=== PATIENT | male | born 1965 | race Asian ===

== ENCOUNTER → 2017-05-15 | Outpatient (CLI) | payer OTHER | END | disposition home or self-care (01) | LOC: CFH 10:42 | PROVIDERS: ATTEND Family Medicine | DX: M19.012 Primary osteoarthritis, left shoulder (principal); M25.511 Pain in right shoulder; M25.532 Pain in left wrist; M79.605 Pain in left leg; M79.604 Pain in right leg; G89.29 Other chronic pain ==

== ENCOUNTER 2017-10-19 13:59 | Inpatient (IN) | payer OTHER ==
[~2017-10-19] VITALS: Ht 175.3 cm; Wt 108.0 kg
[2017-10-19] MEDS ORDERED: ASPI-496 PO (14:12)
[2017-10-19] MEDS ORDERED: METF10002 PO (14:12)
[2017-10-19] MEDS ORDERED: AMLO5TAB2 PO (14:12)
[2017-10-19] MEDS ORDERED: LOSA100T6 PO (14:12)
[2017-10-19] MEDS ORDERED: NAPR-856 PO (14:12)
[2017-10-19] MEDS ORDERED: LOVA20TA2 PO (14:12)
[2017-10-19] MEDS ORDERED: CEPHALEXIN 500 MG CAPSULE PO ONE (15:00)
[2017-10-19] MEDS ORDERED: CEPHALEXIN 500 MG CAPSULE ONE (15:08)
[2017-10-19 16:09] LABS: BASOPHILS % (AUTO) 1 % (0-1); EOSINOPHILS # (AUTO) 0.31 x10^3/uL (0-0.4); EOSINOPHILS % (AUTO) 2 % (1-7); LYMPHOCYTES # (AUTO) 2.43 x10^3/uL (1-3.4); LYMPHOCYTES % (AUTO) 18 % (22-44); MD NO; MEAN CORPUSCULAR HEMOGLOBIN 29.8 pg (27.5-34.5); MEAN CORPUSCULAR VOLUME 87.4 fL (81-97); MEAN PLATELET VOLUME 8.4 fL (7.4-10.4); MONOCYTES # (AUTO) 0.92 x10^3/uL (0.2-0.8); MONOCYTES % (AUTO) 7 % (2-9); NEUTROPHILS # (AUTO) 10.09 x10^3/uL (1.8-6.8); NEUTROPHILS % (AUTO) 73 % (42-75); PLATELET COUNT 321 x10^3/uL (130-400); RED BLOOD COUNT 5.29 x10^6/uL (4.38-5.82); RED CELL DISTRIBUTION WIDTH 13.7 % (9.4-14.8)
[2017-10-19 16:22] LABS: ALBUMIN 3.5 g/dL (3.4-5.0); ANION GAP 7 mmol/L (5-15); CHLORIDE 101 mmol/L (98-107); CREATININE 1.27 mg/dL (0.7-1.3)
[2017-10-19] MEDS ORDERED: AMPICILLIN/SULBACTAM 3 GM in SODIUM CHLORIDE 0.9% 100 ML IVPB ONE (16:30)
[2017-10-19] MEDS ORDERED: ONDANSETRON ODT 4 MG PO PRN (18:00)
[2017-10-19] MEDS ORDERED: ACETAMINOPHEN 325 MG TABLET PO PRN (18:00)
[2017-10-19] MEDS ORDERED: DOCUSATE 100 MG CAPSULE PO PRN (18:00)
[2017-10-19] MEDS ORDERED: TEMAZEPAM 15 MG CAPSULE PO PRN (18:00)
[2017-10-19] MEDS: HYDROcodone/APAP 5/325 TABLET PO PRN ×2 (18:24→23:03)
[2017-10-19] MEDS: INSULIN LISPRO 100 UNITS/ML, PEN SQ-INSULIN SCH ×2 (18:48→21:00)
[2017-10-19 19:06] VITALS: BP 147/98
[2017-10-19] MEDS: LOVASTATIN 20 MG TABLET PO SCH (21:11)
[2017-10-19] MEDS: metFORMIN 500 MG TABLET PO SCH (21:12)
[2017-10-19] MEDS: AMPICILLIN/SULBACTAM 3 GM in SODIUM CHLORIDE 0.9% 100 ML IV SCH (23:03)
[2017-10-20 01:07] VITALS: BP 128/83
[2017-10-20] MEDS: AMPICILLIN/SULBACTAM 3 GM in SODIUM CHLORIDE 0.9% 100 ML IV SCH ×3 (04:30→20:24)
[2017-10-20 06:57] VITALS: BP 119/78
[2017-10-20] MEDS: metFORMIN 500 MG TABLET PO SCH ×2 (07:42→20:24)
[2017-10-20] MEDS: LOSARTAN 50MG TABLET PO SCH (07:42)
[2017-10-20] MEDS: AMLODIPINE 5 MG TABLET PO SCH (07:42)
[2017-10-20] MEDS: INSULIN LISPRO 100 UNITS/ML, PEN SQ-INSULIN SCH ×4 (07:44→20:28)
[2017-10-20] MEDS: HYDROcodone/APAP 5/325 TABLET PO PRN ×2 (08:02→20:34)
[2017-10-20] MEDS ORDERED: PHARMACOKINETIC MONITORING MC PRN (09:30)
[2017-10-20] MEDS ORDERED: VANCOMYCIN PER PHARMACY MC PRN (09:30)
[2017-10-20 10:12] LABS: HEMOGLOBIN A1C 10.8 % (4.2-6.3)
[2017-10-20] MEDS: VANCOMYCIN 2,000 MG in SODIUM CHLORIDE 0.9% 500 ML IV SCH (10:25)
[2017-10-20] MEDS: ASPIRIN 81 MG TABLET EC PO SCH (10:25)
[2017-10-20 10:27] LABS: BASOPHILS # (AUTO) 0.08 x10^3/uL (0-0.1); BASOPHILS % (AUTO) 1 % (0-1); EOSINOPHILS # (AUTO) 0.35 x10^3/uL (0-0.4); EOSINOPHILS % (AUTO) 3 % (1-7); LYMPHOCYTES # (AUTO) 1.96 x10^3/uL (1-3.4); LYMPHOCYTES % (AUTO) 17 % (22-44); MD NO; MEAN CORPUSCULAR HEMOGLOBIN 29.6 pg (27.5-34.5); MEAN CORPUSCULAR HGB CONC 33.4 g/dL (33.2-36.2); MEAN CORPUSCULAR VOLUME 88.7 fL (81-97); MONOCYTES # (AUTO) 0.75 x10^3/uL (0.2-0.8); MONOCYTES % (AUTO) 7 % (2-9); NEUTROPHILS # (AUTO) 8.34 x10^3/uL (1.8-6.8); NEUTROPHILS % (AUTO) 73 % (42-75); PLATELET COUNT 297 x10^3/uL (130-400); RED BLOOD COUNT 5.06 x10^6/uL (4.38-5.82); RED CELL DISTRIBUTION WIDTH 13.6 % (9.4-14.8)
[2017-10-20 12:35] VITALS: BP 122/83
[2017-10-20 19:00] VITALS: BP 123/83
[2017-10-20] MEDS: LOVASTATIN 20 MG TABLET PO SCH (20:24)
[2017-10-21] MEDS: HYDROcodone/APAP 5/325 TABLET PO PRN ×4 (00:06→14:46)
[2017-10-21 02:00] VITALS: BP 116/82
[2017-10-21] MEDS: AMPICILLIN/SULBACTAM 3 GM in SODIUM CHLORIDE 0.9% 100 ML IV SCH ×4 (02:45→20:46)
[2017-10-21] MEDS: VANCOMYCIN 2,000 MG in SODIUM CHLORIDE 0.9% 500 ML IV SCH ×2 (04:05→21:52)
[2017-10-21 04:55] LABS: BASOPHILS # (AUTO) 0.07 x10^3/uL (0-0.1); BASOPHILS % (AUTO) 1 % (0-1); EOSINOPHILS # (AUTO) 0.26 x10^3/uL (0-0.4); EOSINOPHILS % (AUTO) 2 % (1-7); LYMPHOCYTES # (AUTO) 1.99 x10^3/uL (1-3.4); LYMPHOCYTES % (AUTO) 17 % (22-44); MD NO; MEAN CORPUSCULAR HEMOGLOBIN 29.7 pg (27.5-34.5); MEAN CORPUSCULAR HGB CONC 33.8 g/dL (33.2-36.2); MEAN CORPUSCULAR VOLUME 88.1 fL (81-97); MEAN PLATELET VOLUME 8.2 fL (7.4-10.4); MONOCYTES # (AUTO) 0.82 x10^3/uL (0.2-0.8); MONOCYTES % (AUTO) 7 % (2-9); NEUTROPHILS # (AUTO) 8.74 x10^3/uL (1.8-6.8); NEUTROPHILS % (AUTO) 74 % (42-75); PLATELET COUNT 279 x10^3/uL (130-400); RED BLOOD COUNT 4.78 x10^6/uL (4.38-5.82); RED CELL DISTRIBUTION WIDTH 13.6 % (9.4-14.8)
[2017-10-21 05:02] LABS: ANION GAP 8 mmol/L (5-15); CALCIUM 8.2 mg/dL (8.5-10.1); CHLORIDE 102 mmol/L (98-107)
[2017-10-21 07:25] VITALS: BP 122/79
[2017-10-21] MEDS: INSULIN LISPRO 100 UNITS/ML, PEN SQ-INSULIN SCH ×4 (07:30→20:55)
[2017-10-21] MEDS: AMLODIPINE 5 MG TABLET PO SCH (07:41)
[2017-10-21] MEDS: LOSARTAN 50MG TABLET PO SCH (07:41)
[2017-10-21] MEDS: metFORMIN 500 MG TABLET PO SCH ×2 (07:41→20:46)
[2017-10-21] MEDS: ASPIRIN 81 MG TABLET EC PO SCH (09:00)
[2017-10-21 13:31] VITALS: BP 117/77
[2017-10-21 20:01] VITALS: BP 125/81
[2017-10-21] MEDS: LOVASTATIN 20 MG TABLET PO SCH (20:46)
[2017-10-22 01:28] VITALS: BP 125/87
[2017-10-22] MEDS: AMPICILLIN/SULBACTAM 3 GM in SODIUM CHLORIDE 0.9% 100 ML IV SCH ×2 (02:30→09:38)
[2017-10-22] MEDS: INSULIN LISPRO 100 UNITS/ML, PEN SQ-INSULIN SCH ×2 (07:16→11:00)
[2017-10-22 08:00] VITALS: BP 137/87
[2017-10-22] MEDS: metFORMIN 500 MG TABLET PO SCH (09:39)
[2017-10-22] MEDS: LOSARTAN 50MG TABLET PO SCH (09:39)
[2017-10-22] MEDS: ASPIRIN 81 MG TABLET EC PO SCH (09:39)
[2017-10-22] MEDS: AMLODIPINE 5 MG TABLET PO SCH (09:39)
[2017-10-22] MEDS ORDERED: GLIP5TAB10 PO (10:41)
[2017-10-22] MEDS ORDERED: DOXY100T PO (10:41)
[2017-10-22] MEDS ORDERED: AMOX1TAB12 PO (10:41)
[2017-10-22 11:16] LABS: BASOPHILS # (AUTO) 0.09 x10^3/uL (0-0.1); BASOPHILS % (AUTO) 1 % (0-1); EOSINOPHILS # (AUTO) 0.14 x10^3/uL (0-0.4); EOSINOPHILS % (AUTO) 1 % (1-7); LYMPHOCYTES # (AUTO) 2.32 x10^3/uL (1-3.4); LYMPHOCYTES % (AUTO) 21 % (22-44); MD NO; MEAN CORPUSCULAR HEMOGLOBIN 29.5 pg (27.5-34.5); MEAN CORPUSCULAR HGB CONC 33.8 g/dL (33.2-36.2); MEAN CORPUSCULAR VOLUME 87.5 fL (81-97); MONOCYTES # (AUTO) 0.76 x10^3/uL (0.2-0.8); MONOCYTES % (AUTO) 7 % (2-9); NEUTROPHILS # (AUTO) 7.71 x10^3/uL (1.8-6.8); NEUTROPHILS % (AUTO) 70 % (42-75); PLATELET COUNT 288 x10^3/uL (130-400); RED BLOOD COUNT 4.82 x10^6/uL (4.38-5.82); RED CELL DISTRIBUTION WIDTH 12.8 % (9.4-14.8)
== END 2017-10-22 14:30 | disposition home or self-care (01) | DRG 603 ==
LOC: ED 15:38 → EDIP 15:39 → ED 16:25 → 3NW 18:00 → DCLOUNGE 10-22 14:05
PROVIDERS: ADMIT Hospitalist; ATTEND Hospitalist
DX: L03.012 Cellulitis of left finger (principal); E11.40 Type 2 diabetes mellitus with diabetic neuropathy, unspecified; E11.69 Type 2 diabetes mellitus with other specified complication; M65.142 Other infective (teno)synovitis, left hand; E11.65 Type 2 diabetes mellitus with hyperglycemia; I11.9 Hypertensive heart disease without heart failure; E78.5 Hyperlipidemia, unspecified; Z83.3 Family history of diabetes mellitus
CPT/HCPCS: 36415; 80048; 82040; 82962; 83036; 83605; 84145; 85025; 87040; 99285; J0295; J3370; J1815; J7040

== ENCOUNTER → 2017-11-27 | Outpatient (CLI) | payer OTHER ==
[~2017-11-27] MED LIST: AMLO5TAB2 PO; AMOX1TAB12 PO; ASPI-496 PO; DOXY100T PO; GLIP5TAB10 PO; LOSA100T6 PO; LOVA20TA2 PO; METF10003 PO; NAPR-856 PO
[2017-11-27 09:49] LABS: ALANINE AMINOTRANSFERASE 31 U/L (12-78); ALBUMIN 3.5 g/dL (3.4-5.0); ANION GAP 5 mmol/L (5-15); CALCIUM 8.5 mg/dL (8.5-10.1); CHLORIDE 103 mmol/L (98-107); CHOLESTEROL, TOTAL 219 mg/dL (140-239); CREATININE 1.21 mg/dL (0.7-1.3)
[2017-11-27 09:51] LABS: ALKALINE PHOSPHATASE 57 U/L (45-117); BILIRUBIN,TOTAL 0.4 mg/dL (0.2-1.0); CHOL/HDL RATIO 6.3; HDL CHOL % 16 % (26-37); HDL CHOLESTEROL (DIRECT) 35 mg/dL (40-60); TOTAL PROTEIN 8.6 g/dL (6.4-8.2); TRIGLYCERIDES 459 mg/dL (50-200)
== END | disposition home or self-care (01) ==
LOC: LAB 09:18
PROVIDERS: ATTEND Family Medicine
DX: E11.65 Type 2 diabetes mellitus with hyperglycemia (principal)
CPT/HCPCS: 36415; 80053; 80061

== ENCOUNTER → 2017-12-25 | Outpatient (CLI) | payer OTHER | END | disposition home or self-care (01) | LOC: CFH 07:07 | PROVIDERS: ATTEND Internal Medicine Cardiovascular Disease | DX: I21.19 ST elevation (STEMI) myocardial infarction involving other coronary artery of inferior wall (principal); I25.89 Other forms of chronic ischemic heart disease; E11.9 Type 2 diabetes mellitus without complications; I42.9 Cardiomyopathy, unspecified; I34.0 Nonrheumatic mitral (valve) insufficiency | CPT/HCPCS: 78452; 93017; 93306; A9502 ==

== ENCOUNTER 2018-03-18 07:41 | Emergency (ER) | payer OTHER ==
[~2018-03-18] VITALS: Ht 177.8 cm; Wt 104.7 kg
[~2018-03-18 07:41] MED LIST changes: -AMLO5TAB2 PO; +AMLO5TAB7 PO; -LOSA100T6 PO; +LOSA100T7 PO; -METF10003 PO; +METF10007 PO
[2018-03-18 07:45] VITALS: BP 171/92
[2018-03-18] MEDS ORDERED: HYDROcodone/APAP 5/325 TABLET ONE (08:28)
[2018-03-18] MEDS ORDERED: HYDROcodone/APAP 5/325 TABLET PO ONE (08:30)
== END 2018-03-18 08:51 | disposition home or self-care (01) ==
LOC: ED 08:10
DX: H66.92 Otitis media, unspecified, left ear (principal); H60.92 Unspecified otitis externa, left ear; E78.5 Hyperlipidemia, unspecified; I10 Essential (primary) hypertension; E11.9 Type 2 diabetes mellitus without complications
CPT/HCPCS: 99283

== ENCOUNTER 2020-12-14 09:10 | Emergency (ER) | payer OTHER ==
[~2020-12-14] VITALS: Ht 175.3 cm; Wt 99.4 kg
[~2020-12-14 09:10] MED LIST changes: +AMLO-150 PO; -AMLO5TAB7 PO; +LOSA100T14 PO; -LOSA100T7 PO
--- NOTE | 2020-12-14 09:26 | NUR ---
INTIAL CONTACT WITH PT: PT W/ C/O RUQ ABD PAIN THROUGH TO R BACK WITH NAUSEA FOR 1.5 HOUR. PT DENIES DYSURIA. PT WITH STEADY GAIT TO ROOM. POSTIONED TO COMFORT IN BED. VSS. NADN. ATTACHED TO MONITORS.
[2020-12-14] MEDS ORDERED: ONDANSETRON 2MG/ML, 2ML IVPush ONE (10:00)
[2020-12-14] MEDS ORDERED: FAMOTIDINE 20 MG/2 ML IVPush ONE (10:00)
[2020-12-14] MEDS ORDERED: MORPHINE SULFATE 4 MG/ML, 1ML IVPush PRN (10:00)
[2020-12-14] MEDS ORDERED: SODIUM CHLORIDE 0.9% 1,000ML IVBOLUS ONE (10:00)
[2020-12-14] MEDS ORDERED: ONDANSETRON 2MG/ML, 2ML ONE (10:08)
[2020-12-14] MEDS ORDERED: FAMOTIDINE 20 MG/2 ML ONE (10:08)
[2020-12-14] MEDS ORDERED: MORPHINE SULFATE 4 MG/ML, 1ML ONE (10:08)
[2020-12-14 10:10] LABS: BASOPHILS % (AUTO) 1 % (0-1); EOSINOPHILS % (AUTO) 5 % (1-7); LYMPHOCYTES % (AUTO) 17 % (22-44); MEAN CORPUSCULAR HEMOGLOBIN 30.2 pg (27.5-34.5); MEAN CORPUSCULAR HGB CONC 34.7 g/dL (33.2-36.2); MONOCYTES % (AUTO) 6 % (2-9); NEUTROPHILS % (AUTO) 72 % (42-75); PLATELET COUNT 326 x10^3/uL (130-400); RED BLOOD COUNT 5.11 x10^6/uL (4.38-5.82); RED CELL DISTRIBUTION WIDTH 12.4 % (9.4-14.8)
[2020-12-14 10:13] LABS: MICROSCOPIC AUTO
--- NOTE | 2020-12-14 10:14 | NUR ---
US TO BEDSIDE. VSS.
[2020-12-14 10:22] LABS: ALBUMIN 3.5 g/dL (3.4-5.0); ANION GAP 9 mmol/L (5-15); CHLORIDE 98 mmol/L (98-107)
[2020-12-14 10:24] LABS: ALANINE AMINOTRANSFERASE 28 U/L (12-78); ALKALINE PHOSPHATASE 65 U/L (45-117); BILIRUBIN,TOTAL 0.7 mg/dL (0.2-1.0); TOTAL PROTEIN 9.1 g/dL (6.4-8.2)
--- NOTE | 2020-12-14 11:12 | NUR ---
PT RESTING IN BED. STATES RELIEF AFTER MEDICATION. CHARLA NORWOOD. FAMILY AT BEDSIDE. PT TO GO TO CT.
[2020-12-14] MEDS ORDERED: OMNIPAQUE 350 MG/ML, 100ML BOTTLE ONE (12:14)
[2020-12-14 13:07] VITALS: BP 145/94
== END 2020-12-14 13:26 | disposition home or self-care (01) ==
LOC: ED 13:20
DX: K80.50 Calculus of bile duct without cholangitis or cholecystitis without obstruction (principal); K76.0 Fatty (change of) liver, not elsewhere classified; R94.31 Abnormal electrocardiogram [ECG] [EKG]; E11.65 Type 2 diabetes mellitus with hyperglycemia; E78.5 Hyperlipidemia, unspecified; I10 Essential (primary) hypertension
CPT/HCPCS: 36415; 74177; 76700; 80053; 81001; 83690; 85025; 87086; 87147; 93005; 96361; 96374; 96375; 99285; J2270; J2405; J7030; Q9967